=== PATIENT | male | born 1965 | race African-American/Black ===

== ENCOUNTER 2016-12-05 07:37 | Emergency (ER) | payer MEDICAID, OTHER ==
[~2016-12-05] VITALS: Ht 170.2 cm; Wt 79.5 kg
[2016-12-05 07:39] VITALS: BP 147/90
[2016-12-05 09:18] LABS: APPEARANCE,URINE TURBID (CLEAR); GLUCOSE, URINE (UA) NEGATIVE (NEGATIVE); KETONES,URINE NEGATIVE (NEGATIVE); LEUKOCYTE ESTERASE ,URINE LARGE (NEGATIVE); OCCULT BLOOD,URINE MODERATE (NEGATIVE); PH,URINE 6.5 (5.0-8.0); PROTEIN,URINE POS 1+ (NEGATIVE)
[2016-12-05 09:31] LABS: RBC,URINE 26-50 /HPF (0-2); WBC,URINE 51-100 /HPF (0-5)
== END 2016-12-05 08:24 | disposition home or self-care (01) ==
LOC: EMS 07:38
DX: N39.0 Urinary tract infection, site not specified (principal)
CPT/HCPCS: 87086; 99284

== ENCOUNTER 2018-01-15 17:13 | Emergency (ER) | payer MEDICAID, OTHER ==
[~2018-01-15] VITALS: Ht 170.2 cm; Wt 80.9 kg
[2018-01-15] MEDS: IBUPROFEN 800 MG TABLET PO ONE ×2 (19:57→20:19)
[2018-01-15] MEDS ORDERED: BACITRACIN 0.9 GM PACKET OINTMENT TP ONE (20:00)
[2018-01-15 20:27] VITALS: BP 149/87
== END 2018-01-15 20:39 | disposition left against medical advice (07) ==
LOC: EMS 17:15
DX: S50.02XA Contusion of left elbow, initial encounter (principal); F41.0 Panic disorder [episodic paroxysmal anxiety]; V19.9XXA Pedal cyclist (driver) (passenger) injured in unspecified traffic accident, initial encounter; Y93.89 Activity, other specified; Y92.488 Other paved roadways as the place of occurrence of the external cause; Y99.8 Other external cause status
CPT/HCPCS: 99284

== ENCOUNTER 2018-04-16 16:31 | Emergency (ER) | payer OTHER ==
[~2018-04-16] VITALS: Ht 170.2 cm; Wt 84.1 kg
[2018-04-16 17:53] VITALS: BP 159/108
[2018-04-16] MEDS ORDERED: LIDOCAINE 5% TRANSDERMAL PATCH TD ONE (18:15)
[2018-04-16] MEDS ORDERED: KETOROLAC TROMETHAMINE 30 MG/ML VIAL IM ONE (18:15)
[2018-04-16] MEDS ORDERED: HYDROCODONE/ACETAMINOPHEN 5-325 MG TABLET PO ONE (18:15)
== END 2018-04-16 19:27 | disposition home or self-care (01) ==
LOC: EMS 16:34
DX: M54.5 Low back pain (principal); F41.9 Anxiety disorder, unspecified; R03.0 Elevated blood-pressure reading, without diagnosis of hypertension; V49.9XXA Car occupant (driver) (passenger) injured in unspecified traffic accident, initial encounter; Y93.89 Activity, other specified; Y92.89 Other specified places as the place of occurrence of the external cause; Y99.8 Other external cause status
CPT/HCPCS: 72100; 96372; 99283; J1885

== ENCOUNTER 2021-08-25 15:01 | Emergency (ER) | payer OTHER ==
[~2021-08-25] VITALS: Ht 167.6 cm; Wt 79.0 kg
[2021-08-25] MEDS ORDERED: IBUPROFEN 600 MG TABLET PO ONE (15:45)
[2021-08-25] MEDS ORDERED: ACETAMINOPHEN 500 MG TABLET PO ONE (15:45)
[2021-08-25 17:40] VITALS: BP 181/118
[2021-08-25] MEDS ORDERED: ACET-66 PO (17:45)
[2021-08-25] MEDS ORDERED: BACL10TA PO (17:45)
[2021-08-25] MEDS ORDERED: IBUP-1554 PO (17:45)
== END 2021-08-25 18:03 | disposition home or self-care (01) ==
LOC: EMS 15:01
DX: S33.5XXA Sprain of ligaments of lumbar spine, initial encounter (principal); S40.011A Contusion of right shoulder, initial encounter; R03.0 Elevated blood-pressure reading, without diagnosis of hypertension; F41.9 Anxiety disorder, unspecified; F41.0 Panic disorder [episodic paroxysmal anxiety]; Z87.19 Personal history of other diseases of the digestive system; V89.2XXA Person injured in unspecified motor-vehicle accident, traffic, initial encounter; Y93.89 Activity, other specified; Y92.89 Other specified places as the place of occurrence of the external cause; Y99.8 Other external cause status
CPT/HCPCS: 72100; 99284; 73030-TC; Z7502; Z7610

== ENCOUNTER 2022-02-27 20:54 | Emergency (ER) | payer OTHER ==
[~2022-02-27] VITALS: Ht 170.2 cm; Wt 79.5 kg
[~2022-02-27 20:54] MED LIST: ACET-66 PO; BACL10TA PO; IBUP-1554 PO
[2022-02-27 21:05] VITALS: BP 155/95
[2022-02-27] MEDS ORDERED: IBUP-2070 PO (21:24)
[2022-02-27] MEDS ORDERED: CYCL-448 PO (21:24)
[2022-02-27] MEDS ORDERED: IBUPROFEN 600 MG TABLET PO ONE (21:30)
== END 2022-02-27 21:25 | disposition home or self-care (01) ==
LOC: EMS 21:00
DX: M62.830 Muscle spasm of back (principal); M25.552 Pain in left hip; Z79.899 Other long term (current) drug therapy; V43.52XA Car driver injured in collision with other type car in traffic accident, initial encounter; Y93.89 Activity, other specified; Y92.410 Unspecified street and highway as the place of occurrence of the external cause; Y99.8 Other external cause status
CPT/HCPCS: 99283

== ENCOUNTER 2022-03-27 09:42 | Emergency (ER) | payer OTHER ==
[~2022-03-27] VITALS: Ht 167.6 cm; Wt 77.3 kg
[~2022-03-27 09:42] MED LIST changes: -ACET-66 PO; -BACL10TA PO; +CYCL-448 PO; -IBUP-1554 PO; +IBUP-2070 PO
[2022-03-27] MEDS: IBUPROFEN 600 MG TABLET PO ONE ×2 (11:49→12:08)
[2022-03-27 12:09] LABS: BASOPHILS % (AUTO) 0.6 % (0.0-2.0); EOSINOPHILS % (AUTO) 2.2 % (1.0-6.0); HEMATOCRIT 44.3 % (41-53); HEMOGLOBIN 14.8 g/dL (13.5-17.5); LYMPHOCYTES # (AUTO) 1.5 K/uL (1.0-4.8); LYMPHOCYTES % (AUTO) 36.7 % (22.0-44.0); MEAN CORPUSCULAR HEMOGLOBIN 30.1 pg (26.0-34.0); MEAN CORPUSCULAR HGB CONC 33.4 G/dL (31.0-37.0); MEAN CORPUSCULAR VOLUME 90 fL (80-100); MONOCYTES # (AUTO) 0.5 K/uL (0.1-1.0); MONOCYTES % (AUTO) 11.5 % (2.0-9.0); PLATELET COUNT (AUTO) 205 K/uL (150-450); RED BLOOD CELL COUNT(AUTO) 4.92 MIL/uL (4.50-5.90); RED CELL DISTRIBUTION WIDTH 13.7 % (11.5-14.5)
[2022-03-27 12:15] LABS: ANION GAP 2 mmol/L (8-16); CALCIUM, TOTAL 9.2 mg/dL (8.8-10.5); CARBON DIOXIDE 33 mmol/L (22-29); CHLORIDE 104 mmol/L (98-107); CREATININE 0.89 mg/dL (0.60-1.30); GLUCOSE,RANDOM 82 mg/dL (70-110); POTASSIUM 3.5 mmol/L (3.5-5.1); SODIUM SERUM 139 mmol/L (136-145); UREA NITROGEN, BLOOD 7 mg/dL (7-18)
[2022-03-27 12:16] LABS: GLOMERULAR FILTR. RATE CALC > 60 mL/min (>60)
[2022-03-27 12:20] LABS: ALANINE AMINOTRANSFERASE 17 U/L (12-78); ALBUMIN 3.6 g/dL (3.4-5.0); ALKALINE PHOSPHATASE 61 U/L (46-116); ASPARTATE AMINOTRANSFERASE 13 U/L (15-37); BILIRUBIN,TOTAL 0.3 mg/dL (0.1-1.0); TOTAL PROTEIN, SERUM 8.6 g/dL (6.4-8.2)
[2022-03-27 13:39] LABS: APPEARANCE,URINE CLEAR (CLEAR); BILIRUBIN,URINE NEGATIVE (NEGATIVE); GLUCOSE, URINE (UA) NEGATIVE (NEGATIVE); KETONES,URINE NEGATIVE (NEGATIVE); LEUKOCYTE ESTERASE ,URINE NEGATIVE (NEGATIVE); NITRATE,URINE NEGATIVE (NEGATIVE); OCCULT BLOOD,URINE NEGATIVE (NEGATIVE); PROTEIN,URINE NEGATIVE (NEGATIVE); SPECIFIC GRAVITIY, URINE 1.011 (1.003-1.030); UROBILINOGEN,URINE <=1.0 mg/dL (<=1.0)
[2022-03-27 14:02] VITALS: BP 164/106
== END 2022-03-27 14:15 | disposition home or self-care (01) ==
LOC: EMS 09:46
DX: R59.9 Enlarged lymph nodes, unspecified (principal); R10.2 Pelvic and perineal pain; F10.20 Alcohol dependence, uncomplicated; F41.9 Anxiety disorder, unspecified
CPT/HCPCS: 80053; 81003; 85025; 85379; 93926; 93971; 99284

== ENCOUNTER 2022-06-05 19:10 | Emergency (ER) | payer OTHER ==
[~2022-06-05] VITALS: Ht 167.6 cm; Wt 75.0 kg
[~2022-06-05 19:10] MED LIST changes: +IBUP-1492 PO; -IBUP-2070 PO
[2022-06-05 20:28] VITALS: BP 130/83
[2022-06-05] MEDS ORDERED: LIDOCAINE 1% 10 ML VIAL SQ ONE (21:00)
[2022-06-05 21:36] LABS: BASOPHILS % (AUTO) 0.6 % (0.0-2.0); EOSINOPHILS % (AUTO) 4.6 % (1.0-6.0); HEMATOCRIT 39.1 % (41-53); HEMOGLOBIN 12.9 g/dL (13.5-17.5); LYMPHOCYTES # (AUTO) 1.4 K/uL (1.0-4.8); LYMPHOCYTES % (AUTO) 36.8 % (22.0-44.0); MEAN CORPUSCULAR HEMOGLOBIN 29.9 pg (26.0-34.0); MEAN CORPUSCULAR VOLUME 91 fL (80-100); MONOCYTES # (AUTO) 0.6 K/uL (0.1-1.0); MONOCYTES % (AUTO) 14.1 % (2.0-9.0); NEUTROPHILS # (AUTO) 1.7 K/uL (1.8-7.7); NEUTROPHILS % (AUTO) 43.9 % (40.0-70.0); PLATELET COUNT (AUTO) 191 K/uL (150-450); RED BLOOD CELL COUNT(AUTO) 4.31 MIL/uL (4.50-5.90); RED CELL DISTRIBUTION WIDTH 13.7 % (11.5-14.5)
[2022-06-05 21:52] LABS: ANION GAP 7 mmol/L (8-16); CARBON DIOXIDE 31 mmol/L (22-29); CHLORIDE 104 mmol/L (98-107); CREATININE 1.02 mg/dL (0.60-1.30); GLOMERULAR FILTR. RATE CALC > 60 mL/min (>60); GLUCOSE,RANDOM 100 mg/dL (70-110); LACTIC ACID 0.9 mmol/L (0.4-2.0); POTASSIUM 3.9 mmol/L (3.5-5.1); SODIUM SERUM 142 mmol/L (136-145)
[2022-06-05] MEDS ORDERED: LIDO700A15 TP (22:05)
[2022-06-05] MEDS ORDERED: CEPH-558 PO (22:05)
[2022-06-05] MEDS ORDERED: DICL100G51 TP (22:05)
[2022-06-05] MEDS ORDERED: IBUP-1554 PO (22:05)
[2022-06-05] MEDS ORDERED: DOXY-354 PO (22:05)
[2022-06-05 22:50] LABS: UREA NITROGEN, BLOOD 14 mg/dL (7-18)
== END 2022-06-05 22:25 | disposition home or self-care (01) ==
LOC: EMS 19:18
DX: S30.1XXA Contusion of abdominal wall, initial encounter (principal); L03.116 Cellulitis of left lower limb; M16.12 Unilateral primary osteoarthritis, left hip; F41.9 Anxiety disorder, unspecified; X58.XXXA Exposure to other specified factors, initial encounter; Y93.89 Activity, other specified; Y92.89 Other specified places as the place of occurrence of the external cause; Y99.8 Other external cause status
CPT/HCPCS: 99284; 10160; 80048; 83605; 85025; 36415; J3490

== ENCOUNTER 2024-04-11 16:35 | Emergency (ER) | payer OTHER ==
[~2024-04-11] VITALS: Ht 177.8 cm; Wt 81.8 kg
[~2024-04-11 16:35] MED LIST changes: +CEPH-558 PO; +DICL100G60 TP; +DOXY-354 PO; +IBUP-1554 PO; +LIDO700A15 TP
[2024-04-11 16:44] VITALS: BP 162/74; PULSE 76; RESP 16; TEMP 98.3; O2SAT 100
[2024-04-11 16:52] LABS: COVID AG,FIA SOURCE NASAL SWAB
[2024-04-11 17:17] LABS: INFLUENZA TYPE A NEGATIVE FOR TYPE A (NEGATIVE); INFLUENZA TYPE B NEGATIVE FOR TYPE B (NEGATIVE)
[2024-04-11 17:51] LABS: SARS-COV2 (COVID) ANTIGEN,FIA Positive (Negative)
[2024-04-11] MEDS ORDERED: D-ME-162 PO (18:03)
== END 2024-04-11 18:14 | disposition home or self-care (01) ==
LOC: EMS 16:38
DX: U07.1 COVID-19 (principal); J06.9 Acute upper respiratory infection, unspecified; Z87.19 Personal history of other diseases of the digestive system
CPT/HCPCS: 87804; 99283